=== PATIENT | female | born 1970 | race Caucasian/White ===

== ENCOUNTER → 2016-12-01 | Outpatient (CLI) | payer BC ==
[~2016-12-01] VITALS: Ht 175.3 cm; Wt 102.1 kg
[~2016-12-01] MED LIST: IMITREX6 MG/0.51 SQ; KEFLEX500 MG PO; LIPITOR TAB 2020 MG PO; METOPROLOL SUCC25 MG PO; NAPROXEN500 MG PO; NORCO 5-325 TA1 EACH PO; SEROQUEL25 MG PO; SYNTHROID112 MCG PO; TOPAMAX100 MG PO; VENLAFAXINE HCL75 M1 PO
== END ==
LOC: CATH 06:35
DX: I63.9 Cerebral infarction, unspecified (principal); R55 Syncope and collapse; R00.2 Palpitations; H54.3 Unqualified visual loss, both eyes; I49.1 Atrial premature depolarization; G43.709 Chronic migraine without aura, not intractable, without status migrainosus; R06.02 Shortness of breath; Z98.890 Other specified postprocedural states; Z88.1 Allergy status to other antibiotic agents; Z79.1 Long term (current) use of non-steroidal anti-inflammatories (NSAID); Z79.899 Other long term (current) drug therapy
CPT/HCPCS: 33282; C1764; J0690; J1200; J2250; J3010; J3370; J7040

== ENCOUNTER → 2020-11-21 | Outpatient (CLI) | payer BC ==
[~2020-11-21] MED LIST changes: +CLINDAMYCIN HC300 MG PO; +DIGOXIN125 MCG PO; +ELIQUIS5 MG PO; +HYDROCODON-ACE1 EAC4 PO; +IMITREX6 MG/0.51 SC; -METOPROLOL SUCC25 MG PO; +METOPROLOL TART50 MG PO; +PROZAC20 MG PO; +PROZAC40 MG PO; +REQUIP PO; +SEROQUEL100 MG PO; -SEROQUEL25 MG PO; -SYNTHROID112 MCG PO; +SYNTHROID125 MCG PO
== END ==
LOC: CATH 07:47
DX: Z45.09 Encounter for adjustment and management of other cardiac device (principal); I47.1 Supraventricular tachycardia; I48.0 Paroxysmal atrial fibrillation; I10 Essential (primary) hypertension; G43.709 Chronic migraine without aura, not intractable, without status migrainosus; I49.1 Atrial premature depolarization; Z88.1 Allergy status to other antibiotic agents; Z79.01 Long term (current) use of anticoagulants; Z79.899 Other long term (current) drug therapy
CPT/HCPCS: 99152; 99153; J2250; J3010; J3370; J7040

== ENCOUNTER → 2021-01-13 | Outpatient (CLI) | payer BC | LOC: HEART 5 11:04 | DX: I48.91 Unspecified atrial fibrillation (principal); R55 Syncope and collapse; R00.2 Palpitations; R06.02 Shortness of breath; R00.0 Tachycardia, unspecified ==